=== PATIENT | female | born 1945 | race Caucasian/White ===

== ENCOUNTER → 2024-08-31 | Outpatient (CLI) | payer MEDICARE, MEDICAID, SELFPAY ==
--- NOTE | 2024-08-31 13:00 | XR_ITS ---
Examination: Bone densitometry Date and time of exam:August 31, 2024 1311 hours INDICATIONS: Hysterectomy age 51 Technique: Lumbar spine and hip total bone mineralization values of an calculated. Peak reference and age match control results have been displayed. Findings: Lumbar spine total bone mineralization is0.936 gm/cm2. This is 1.0 standard deviations below peak reference. This is 1.6 standard deviations above age-matched controls. Hip total bone mineralization is 0.861 gm/cm2 This is 0.7 standard deviations below peak reference. This is 1.3 standard deviations above age-matched controls Impression: There is normal mineralization based on lumbar spine measurements. There is osteopenia based on hip measurements
== END | disposition home or self-care (01) ==
LOC: CDIM 12:41
PROVIDERS: PCP Physician Assistant; Referring Provider Physician Assistant; Visit Provider Physician Assistant
DX: M85.88 Other specified disorders of bone density and structure, other site (principal)
CPT/HCPCS: 77080